=== PATIENT | male | born 1965 | race Hispanic/Latino ===

== ENCOUNTER 2017-02-01 01:24 | Emergency (ER) | payer OTHER ==
[2017-02-01 01:58] VITALS: BP 103/63; PULSE 67; RESP 16; TEMP 98; O2SAT 97
--- NOTE | 2017-02-01 02:55 | ED PDOC ---
HPI: Eye Injury/Pain Time Seen by Provider: 02/01/17 02:24 Chief Complaint (Nursing): Eye Problem Chief Complaint (Provider): Right eye pain History Per: Patient History/Exam Limitations: no limitations Onset/Duration Of Symptoms: Days (14) Current Symptoms Are (Timing): Still Present Severity: Moderate Quality: "Pain" Associated Symptoms: Pain, Discharge From Eye. denies: Decreased Vision, Swelling, FB Sensation Additional History Per: Patient Additional Complaint(s): 51 y/o male complaining of right eye pain for the last two weeks, and worsening discomfort, mucoid discharge, and injection over the last day. Denies visual disturbance, fever, headache, nausea, or vomiting. He is a hard contact lens wearer, and has continued to use the lenses. Patient also has been scratching the eye. no visual disturb. Past Medical History Vital Signs: Last Vital Signs Temp 98.0 F 02/01/17 01:55 Pulse 67 02/01/17 01:55 Resp 16 02/01/17 01:55 BP 103/63 02/01/17 01:55 Pulse Ox 97 02/01/17 01:55 - Medical History PMH: No Chronic Diseases - Surgical History Surgical History: No Surg Hx - Family History Family History: States: Unknown Family Hx - Social History Current smoker - smoking cessation education provided: No Ex-Smoker (has not smoked in the last 12 months): No Alcohol: None Drugs: Denies - Home Medications Home Medications: Ambulatory Orders Medication Instructions Recorded Ofloxacin Ophth 0.3% [Ocuflox 2 drop OD QID #1 bottle 02/01/17 Ophth 0.3%] - Allergies Allergies/Adverse Reactions: Allergies Allergy/AdvReac Type Severity Reaction Status Date / Time No Known Allergies Allergy Verified 02/01/17 01:58 Review of Systems ROS Statement: Except As Marked, All Systems Reviewed And Found Negative ENT: Positive for: Ear Pain, Ear Discharge Physical Exam - Physical Exam Appears: Positive for: Well, No Acute Distress Eye Exam: Positive for: EOMI, PERRL, Conjunctival injection (right ), Other ( fluorescein update OD 6-9 o'clock). Negative for: Nystagmus - ECG O2 Sat by Pulse Oximetry: 97 Medical Decision Making Medical Decision Making: Impression: right eye discomfort, mucoid discharge, and injection Discussion: Patient given eye patch, and rx for antibiotic optic drops. He was instructed to discontinue contact lens use until the antibiotic is completed. Referral to ophthalmology given. Scribe Attestation: Documented by Ashley Hanks, acting as a scribe for González Higginbotham MD Provider Scribe Attestation: All medical record entries made by the Scribe were at my direction and personally dictated by me. I have reviewed the chart and agree that the record accurately reflects my personal performance of the history, physical exam, medical decision making, and the department course for this patient. I have also personally directed, reviewed, and agree with the discharge instructions and disposition. Disposition - Clinical Impression Clinical Impression: Conjunctivitis, Corneal abrasion - Patient ED Disposition Is Patient to be Admitted: No Doctor Will See Patient In The: Office Counseled Patient/Family Regarding: Diagnosis, Need For Followup - Disposition Referrals: Esau Gusman MD [Staff Provider] - Disposition: Routine/Home Disposition Time: 02:55 Condition: STABLE Prescriptions: Ofloxacin Ophth 0.3% [Ocuflox Ophth 0.3%] 2 drop OD QID #1 bottle Instructions: Corneal Abrasion (ED) Forms: [facility] [facility] ([place])
== END 2017-02-01 02:55 | disposition home or self-care (01) ==
LOC: H.ER 01:24
DX: H10.9 Unspecified conjunctivitis (principal); S05.01XA Injury of conjunctiva and corneal abrasion without foreign body, right eye, initial encounter; X58.XXXA Exposure to other specified factors, initial encounter; Y93.9 Activity, unspecified; Y92.9 Unspecified place or not applicable